=== PATIENT | female | born 1965 | race Hispanic/Latino ===

== ENCOUNTER 2018-05-05 01:41 | Emergency (ER) | payer MEDICARE, MEDICAID ==
[2018-05-05] MEDS ORDERED: Fluconazole 100 MG TAB PO SCH (02:30)
[2018-05-05 03:27] LABS: Bacteria/HPF None Seen HPF (None Seen); Bilirubin Negative (Negative); Blood, Urine Negative (Negative); Clarity CLEAR (Clear); Glucose, Urine (Dipstick) Negative (Negative); Hyaline Casts/LPF 0-3 HYALINE CAST LPF (0-3 Hyaline); Leukocyte Small (Negative); Nitrite Negative (Negative); Pathc Cast-AUWi Flag 0.14 (0-2.49); Protein, Urine (Dipstick) Negative (Neg-Trace); Specific Gravity, Urine 1.012 (1.002-1.036); Squamous Epithelial None Seen HPF (0-3); Urobilinogen 0.2 mg/dL (0.2-1.0); WBC/HPF None Seen HPF (0-3)
== END 2018-05-05 02:42 | disposition home or self-care (01) ==
LOC: ERS 01:41
DX: B37.3 Candidiasis of vulva and vagina (principal); E11.9 Type 2 diabetes mellitus without complications; F17.210 Nicotine dependence, cigarettes, uncomplicated; Z79.899 Other long term (current) drug therapy
CPT/HCPCS: 36416; 81003; 81015; 99284

== ENCOUNTER 2018-05-07 10:26 | Emergency (ER) | payer MEDICARE, MEDICAID ==
[2018-05-07 12:11] LABS: Bilirubin Negative (Negative); Blood, Urine Negative (Negative); Clarity CLEAR (Clear); Glucose, Urine (Dipstick) 100 mg/dL (Negative); Leukocyte Trace (Negative); Nitrite Negative (Negative); Protein, Urine (Dipstick) Negative (Neg-Trace); Specific Gravity, Urine 1.012 (1.002-1.036); Urobilinogen 0.2 mg/dL (0.2-1.0); pH, Urine 5.5 (5.0-9.0)
[2018-05-07 12:12] LABS: Pregnancy Test - Urine (BHCG) Negative (Negative); Pregu Control Background? CLEAR/WHITE (CLR/WHITE); Pregu Control Bar Appear? YES (CONTROL BAR); Specific Gravity 1.012 (1.002-1.036)
[2018-05-07 12:13] LABS: Bacteria/HPF None Seen HPF (None Seen); Hyaline Casts/LPF 0-3 HYALINE CAST LPF (0-3 Hyaline); Pathc Cast-AUWi Flag 0.14 (0-2.49); RBC/HPF 0-3 HPF (0-3); Squamous Epithelial 0-3 HPF (0-3); WBC/HPF 0-3 HPF (0-3)
[2018-05-07] MEDS ORDERED: Azithromycin 250 MG TAB ONE (12:59)
[2018-05-07] MEDS ORDERED: cefTRIAXone\\ROCEPHIN 250 MG VIAL ONE (12:59)
[2018-05-07] MEDS ORDERED: Lidocaine 1% (PF) 30 ML VIAL ONE (12:59)
[2018-05-08 22:14] LABS: Chlamydia by PCR Not Detected (NotDetected); GC by PCR Not Detected (NotDetected)
== END 2018-05-07 13:09 | disposition home or self-care (01) ==
LOC: ERS 10:26
DX: N72 Inflammatory disease of cervix uteri (principal); E11.9 Type 2 diabetes mellitus without complications; E78.5 Hyperlipidemia, unspecified; F31.9 Bipolar disorder, unspecified; F17.210 Nicotine dependence, cigarettes, uncomplicated; Z71.6 Tobacco abuse counseling
CPT/HCPCS: 81003; 81015; 81025; 87480; 87491; 87510; 87591; 87660; 96372; J0696; J2001

== ENCOUNTER 2018-10-07 18:40 | Emergency (ER) | payer MEDICARE, MEDICAID ==
[2018-10-07] MEDS ORDERED: Lidocaine 1% (PF) 30 ML VIAL ONE (19:26)
== END 2018-10-07 20:14 | disposition home or self-care (01) ==
LOC: ERS 18:40
DX: L02.211 Cutaneous abscess of abdominal wall (principal); E11.9 Type 2 diabetes mellitus without complications; E78.5 Hyperlipidemia, unspecified; F31.9 Bipolar disorder, unspecified; F17.210 Nicotine dependence, cigarettes, uncomplicated; Z71.6 Tobacco abuse counseling
CPT/HCPCS: 10061; 99406; J2001

== ENCOUNTER 2019-09-20 09:54 | Emergency (ER) | payer MEDICARE, MEDICAID ==
[2019-09-20 10:57] LABS: #Basophils 0.1 thou/uL (0.0-0.2); #Eosinphils 0.4 thou/uL (0.0-0.7); #Lymphocytes 3.2 thou/uL (1.20-3.40); #Monocytes 0.5 thou/uL (0.11-0.59); #Neutrophils 6.1 thou/uL (1.40-6.50); %Basophils 1.1 % (0.0-1.0); %Eosinophils 3.7 % (0.0-10.0); %Lymphocytes 30.7 % (21.0-51.0); %Monocytes 5.2 % (0.0-10.0); %Neutrophils 59.2 % (42.0-75.0); Hemoglobin 13.2 g/dL (12.0-16.0); Mean Corpuscular HGB CONC 34.8 g/dL (32.0-36.0); Mean Corpuscular Hemoglobin 29.2 pg (27.0-31.0); Mean Corpuscular Volume 83.9 fL (78.0-98.0); Mean Platelet Volume 9.4 fL (7.4-10.4); Platelet Count 228 thou/uL (130-400); RBC Distribution Width 11.8 % (11.5-14.5); Red Blood Cell (RBC) Count 4.53 mill/uL (4.20-5.40); White Blood Cell (WBC) Count 10.3 thou/uL (4.8-10.8)
[2019-09-20 11:13] LABS: Anion Gap 11 mmol/L (10-20); BUN (Urea Nitrogen) 19 mg/dL (9.8-20.1); CK (CPK) 22 U/L (29-168); Calc. Creatinine Clearance 0 mL/min (70-130); Carbon Dioxide 29 mmol/L (22-29); Chloride 99 mmol/L (98-107); Estimated GFR-MDRD 57; Glucose 338 mg/dL (70-105); Sodium 135 mmol/L (136-145)
== END 2019-09-20 11:40 | disposition home or self-care (01) ==
LOC: ERS 09:54
DX: T75.4XXA Electrocution, initial encounter (principal); E11.9 Type 2 diabetes mellitus without complications; F17.210 Nicotine dependence, cigarettes, uncomplicated; W86.8XXA Exposure to other electric current, initial encounter
CPT/HCPCS: 36415; 80048; 82550; 85025; 93005

== ENCOUNTER 2019-11-06 15:31 | Emergency (ER) | payer MEDICARE, MEDICAID ==
[2019-11-06 16:48] LABS: Bilirubin Negative (Negative); Blood, Urine Negative (Negative); Clarity Clear (Clear); Glucose, Urine (Dipstick) Greater than 1000 mg/dL (Negative); Leukocyte Negative Leu/uL (Negative); Nitrite Negative (Negative); Protein, Urine (Dipstick) Negative (Neg-Trace); Urobilinogen Normal mg/dL (Less than 2)
[2019-11-06 18:47] LABS: Base Excess-Venous 3.1 mmol/L (-2.0 to 3.0); Bicarbonate (HCO3v) 29.5 mmol/L (22.0-28.0); Calcium, Ionized 1.18 mmol/L (See Comments:); Chloride 94 mmol/L (98-107); Hemoglobin - Calc 13.9 g/dL (12.0-16.0); Potassium 3.6 mmol/L (3.5-5.1); Sodium 133 mmol/L (138-145)
[2019-11-06 18:47] LABS: #Basophils 0.1 thou/uL (0.0-0.2); #Eosinphils 0.3 thou/uL (0.0-0.7); #Lymphocytes 2.9 thou/uL (1.20-3.40); #Monocytes 0.8 thou/uL (0.11-0.59); #Neutrophils 5.3 thou/uL (1.40-6.50); %Basophils 1.2 % (0.0-1.0); %Eosinophils 3.4 % (0.0-10.0); %Lymphocytes 30.7 % (21.0-51.0); %Monocytes 8.8 % (0.0-10.0); Hemoglobin 13.2 g/dL (12.0-16.0); Mean Corpuscular HGB CONC 36.2 g/dL (32.0-36.0); Mean Corpuscular Hemoglobin 29.9 pg (27.0-31.0); Mean Corpuscular Volume 82.5 fL (78.0-98.0); Mean Platelet Volume 9.3 fL (7.4-10.4); Platelet Count 239 thou/uL (130-400); RBC Distribution Width 11.9 % (11.5-14.5); Red Blood Cell (RBC) Count 4.41 mill/uL (4.20-5.40); White Blood Cell (WBC) Count 9.4 thou/uL (4.8-10.8)
[2019-11-06 19:08] LABS: ALT (SGPT) 21 U/L (8-55); AST (SGOT) 16 U/L (5-34); Albumin 4.6 g/dL (3.5-5.0); Alkaline Phosphatase 167 U/L (40-110); Anion Gap 14 mmol/L (10-20); BUN (Urea Nitrogen) 13 mg/dL (9.8-20.1); Bilirubin, Total 0.4 mg/dL (0.2-1.2); Calc. Creatinine Clearance 0 mL/min (70-130); Carbon Dioxide 29 mmol/L (22-29); Chloride 93 mmol/L (98-107); Estimated GFR-MDRD 47; Globulin 3.6 g/dL (2.4-3.5); Glucose 504 mg/dL (70-105); Lipase 27 U/L (8-78); Potassium 3.8 mmol/L (3.5-5.1); Protein, Total 8.2 g/dL (6.0-8.3); Sodium 132 mmol/L (136-145)
[2019-11-06] MEDS ORDERED: Insulin Regular 300 UNITS/3 ML VIAL ONE (19:31)
== END 2019-11-06 20:38 | disposition home or self-care (01) ==
LOC: ERS 15:31
DX: E11.65 Type 2 diabetes mellitus with hyperglycemia (principal); R32 Unspecified urinary incontinence; E78.5 Hyperlipidemia, unspecified; F31.9 Bipolar disorder, unspecified; F17.210 Nicotine dependence, cigarettes, uncomplicated
CPT/HCPCS: 36416; 80053; 81003; 82010; 82330; 82803; 83690; 85025; 96361; 96374; J1815

== ENCOUNTER 2020-02-07 13:15 | Emergency (ER) | payer MEDICARE, OTHER ==
[2020-02-07] MEDS ORDERED: Nystatin Cream 15 GM TUBE TOP SCH (13:45)
== END 2020-02-07 14:15 | disposition home or self-care (01) ==
LOC: ERS 13:15
DX: B35.6 Tinea cruris (principal); F31.9 Bipolar disorder, unspecified; E78.5 Hyperlipidemia, unspecified; F17.210 Nicotine dependence, cigarettes, uncomplicated; Z79.84 Long term (current) use of oral hypoglycemic drugs
CPT/HCPCS: 99282

== ENCOUNTER 2021-02-12 20:27 | Emergency (ER) | payer MEDICARE, OTHER ==
[2021-02-12 21:53] LABS: Bacteria/HPF None Seen HPF (None Seen); Bilirubin Negative (Negative); Blood, Urine Negative (Negative); Clarity Clear (Clear); Glucose, Urine (Dipstick) Normal (Negative); Ketone, Urine Negative (Negative); Leukocyte 75 Leu/uL (Negative); Mucous/LPF Rare LPF (<2+); Nitrite Negative (Negative); Protein, Urine (Dipstick) Negative (Neg-Trace); RBC/HPF 0-3 HPF (0-3); Renal Epithelial 0-3 HPF (None Seen); Specific Gravity, Urine 1.017 (1.002-1.036); Squamous Epithelial 0-3 HPF (0-3); Urobilinogen Normal mg/dL (Less than 2)
== END 2021-02-12 23:18 | disposition home or self-care (01) ==
LOC: ERS 20:27
DX: N76.0 Acute vaginitis (principal); K02.9 Dental caries, unspecified; L29.9 Pruritus, unspecified; B00.82 Herpes simplex myelitis; E11.9 Type 2 diabetes mellitus without complications; E78.5 Hyperlipidemia, unspecified; F17.210 Nicotine dependence, cigarettes, uncomplicated
CPT/HCPCS: 81003; 81015; 99283

== ENCOUNTER 2021-10-31 12:27 | Observation (INO) | payer MEDICARE, MEDICAID ==
[2021-10-31 13:17] LABS: #Eosinphils 0.1 thou/uL (0.0-0.7); #Lymphocytes 1.3 thou/uL (1.20-3.40); #Monocytes 0.9 thou/uL (0.11-0.59); #Neutrophils 10.6 thou/uL (1.40-6.50); %Basophils 0.3 % (0.0-1.0); %Eosinophils 0.8 % (0.0-10.0); %Lymphocytes 10.1 % (21.0-51.0); %Monocytes 7.1 % (0.0-10.0); %Neutrophils 81.7 % (42.0-75.0); Hemoglobin 9.2 g/dL (12.0-16.0); Mean Corpuscular HGB CONC 33.4 g/dL (32.0-36.0); Mean Corpuscular Hemoglobin 27.8 pg (27.0-31.0); Mean Corpuscular Volume 83.3 fL (78.0-98.0); Mean Platelet Volume 9.5 fL (7.4-10.4); Platelet Count 366 thou/uL (130-400); RBC Distribution Width 14.5 % (11.5-14.5); Red Blood Cell (RBC) Count 3.31 mill/uL (4.20-5.40)
[2021-10-31 13:38] LABS: ALT (SGPT) 19 U/L (8-55); AST (SGOT) 19 U/L (5-34); Albumin 3.7 g/dL (3.5-5.0); Alkaline Phosphatase 198 U/L (40-110); Anion Gap 13 mmol/L (10-20); BUN (Urea Nitrogen) 33 mg/dL (9.8-20.1); Bilirubin, Total 0.3 mg/dL (0.2-1.2); Calc. Creatinine Clearance 0 mL/min (70-130); Calcium 9.2 mg/dL (7.8-10.44); Carbon Dioxide 26 mmol/L (22-29); Chloride 95 mmol/L (98-107); Globulin 3.3 g/dL (2.4-3.5); Potassium 4.9 mmol/L (3.5-5.1); Sodium 129 mmol/L (136-145)
[2021-10-31 13:44] LABS: Glucose 642 mg/dL (70-105)
[2021-10-31 14:23] LABS: Actual Bicarbonate (HCO3v) 23 mEq/L (22-28); Analyzer IN Cardio ER; Calcium, Ionized (venous) 1.07 mmol/L (1.16-1.32); Chloride (VBG) 94 mmol/L (98-106); Potassium (VBG) 4.77 mmol/L (3.70-5.30); pH (venous) 7.36 (7.32-7.43)
[2021-10-31] MEDS ORDERED: Insulin Regular 300 UNITS/3 ML VIAL ONE ×3 (14:34→14:36)
[2021-10-31 14:59] LABS: Bilirubin Negative (Negative); Blood, Urine Negative (Negative); Clarity Clear (Clear); Glucose, Urine (Dipstick) Greater than 1000 mg/dL (Negative); Ketone, Urine Negative (Negative); Leukocyte Negative Leu/uL (Negative); Nitrite Negative (Negative); Protein, Urine (Dipstick) Negative (Neg-Trace); Specific Gravity, Urine 1.024 (1.002-1.036); Urobilinogen Normal mg/dL (Less than 2); pH, Urine 5.5 (5.0-9.0)
[2021-10-31] MEDS ORDERED: Ondansetron ODT 4 MG TAB SL PRN (17:45)
[2021-10-31] MEDS ORDERED: Ondansetron PF 4 MG/2 ML Vial IVP PRN (17:45)
[2021-10-31] MEDS ORDERED: Acetaminophen 325 MG TAB PO PRN (17:45)
[2021-10-31 18:01] LABS: SARS-CoV-2 NAA Rapid Test Not Detected (NotDetected)
[2021-10-31 18:13] VITALS: BMI 20.2
[2021-10-31] MEDS ORDERED: Prevnar 13-Val Conj/PF 0.5 ML SYRINGE IM ONE (18:30)
[2021-10-31] MEDS ORDERED: Insulin Regular 300 UNITS/3 ML VIAL SC PRN (18:45)
[2021-10-31] MEDS ORDERED: Dextrose 5% in Water 1,000 ML IV PRN ×2 (18:45→20:03)
[2021-10-31] MEDS ORDERED: Dextrose 50% Abboject 50 ML SYRINGE SLOW IVP PRN (18:45)
[2021-10-31] MEDS ORDERED: Ondansetron ODT 4 MG TAB PO PRN (20:03)
[2021-10-31] MEDS ORDERED: Acetaminophen 650 MG Suppository PR PRN (20:03)
[2021-10-31] MEDS ORDERED: Piperacillin/Tazobactam 3.375 GM in Sodium Chloride 0.9% 100 ML IVPB SCH ×2 (20:15→21:00)
[2021-10-31] MEDS ORDERED: Vancomycin 1 GM in Premix Bag 1 BAG IVPB SCH (21:00)
[2021-10-31] MEDS: Sodium Chloride 0.9% 1,000 ML IV SCH (21:13)
[2021-10-31] MEDS: Morphine 4 MG/ML VIAL SLOW IVP PRN (23:02)
[2021-10-31 23:14] LABS: Lactic Acid 0.7 mmol/L (0.5-2.2)
[2021-11-01] MEDS: Sodium Chloride 0.9% 1,000 ML IV SCH (03:03)
[2021-11-01 05:30] LABS: #Basophils 0.1 thou/uL (0.0-0.2); #Eosinphils 0.2 thou/uL (0.0-0.7); #Lymphocytes 2.3 thou/uL (1.20-3.40); #Monocytes 0.9 thou/uL (0.11-0.59); #Neutrophils 5.7 thou/uL (1.40-6.50); %Basophils 0.7 % (0.0-1.0); %Eosinophils 2.1 % (0.0-10.0); %Lymphocytes 25.5 % (21.0-51.0); %Monocytes 9.4 % (0.0-10.0); %Neutrophils 62.4 % (42.0-75.0); Hemoglobin 7.8 g/dL (12.0-16.0); Mean Corpuscular HGB CONC 32.8 g/dL (32.0-36.0); Mean Corpuscular Hemoglobin 27.5 pg (27.0-31.0); Mean Corpuscular Volume 83.9 fL (78.0-98.0); Mean Platelet Volume 9.1 fL (7.4-10.4); Platelet Count 342 thou/uL (130-400); RBC Distribution Width 14.2 % (11.5-14.5); Red Blood Cell (RBC) Count 2.84 mill/uL (4.20-5.40); White Blood Cell (WBC) Count 9.2 thou/uL (4.8-10.8)
[2021-11-01 05:41] LABS: Anion Gap 12 mmol/L (10-20); BUN (Urea Nitrogen) 14 mg/dL (9.8-20.1); Calc. Creatinine Clearance 54 mL/min (70-130); Calcium 8.5 mg/dL (7.8-10.44); Carbon Dioxide 24 mmol/L (22-29); Chloride 108 mmol/L (98-107); Glucose 129 mg/dL (70-105); Potassium 4.2 mmol/L (3.5-5.1); Sodium 140 mmol/L (136-145)
[2021-11-01] MEDS: Piperacillin/Tazobactam 3.375 GM in Sodium Chloride 0.9% 100 ML IVPB SCH ×3 (08:27→16:40)
[2021-11-01] MEDS: Enoxaparin Sodium 40 MG/0.4 ML SYRINGE SC SCH (08:27)
[2021-11-01] MEDS: Morphine 4 MG/ML VIAL SLOW IVP PRN (10:54)
[2021-11-01] MEDS: Insulin Regular 300 UNITS/3 ML VIAL SC PRN (17:27)
[2021-11-01] MEDS: Vancomycin HCl 750 MG in Sodium Chloride 0.9% 250 ML 250 ML IVPB SCH (22:26)
[2021-11-02] MEDS: Piperacillin/Tazobactam 3.375 GM in Sodium Chloride 0.9% 100 ML IVPB SCH ×3 (01:27→16:12)
[2021-11-02] MEDS: Morphine 4 MG/ML VIAL SLOW IVP PRN ×4 (01:39→20:53)
[2021-11-02] MEDS: Insulin Regular 300 UNITS/3 ML VIAL SC PRN ×3 (06:29→15:51)
[2021-11-02] MEDS: Enoxaparin Sodium 40 MG/0.4 ML SYRINGE SC SCH (08:16)
[2021-11-02] MEDS: Vancomycin HCl 750 MG in Sodium Chloride 0.9% 250 ML 250 ML IVPB SCH (20:50)
[2021-11-03] MEDS: Piperacillin/Tazobactam 3.375 GM in Sodium Chloride 0.9% 100 ML IVPB SCH ×2 (02:08→08:49)
[2021-11-03 06:10] LABS: #Basophils 0.1 thou/uL (0.0-0.2); #Eosinphils 0.3 thou/uL (0.0-0.7); #Lymphocytes 1.8 thou/uL (1.20-3.40); #Neutrophils 6.5 thou/uL (1.40-6.50); %Basophils 0.8 % (0.0-1.0); %Eosinophils 3.2 % (0.0-10.0); %Lymphocytes 18.5 % (21.0-51.0); %Monocytes 10.1 % (0.0-10.0); %Neutrophils 67.5 % (42.0-75.0); Hemoglobin 8.5 g/dL (12.0-16.0); Mean Corpuscular HGB CONC 33.4 g/dL (32.0-36.0); Mean Corpuscular Hemoglobin 27.6 pg (27.0-31.0); Mean Corpuscular Volume 82.8 fL (78.0-98.0); Mean Platelet Volume 8.2 fL (7.4-10.4); Platelet Count 345 thou/uL (130-400); RBC Distribution Width 13.8 % (11.5-14.5); Red Blood Cell (RBC) Count 3.08 mill/uL (4.20-5.40); White Blood Cell (WBC) Count 9.6 thou/uL (4.8-10.8)
[2021-11-03] MEDS: Insulin Regular 300 UNITS/3 ML VIAL SC PRN ×2 (06:16→12:00)
[2021-11-03 06:33] LABS: Anion Gap 13 mmol/L (10-20); BUN (Urea Nitrogen) 11 mg/dL (9.8-20.1); Calc. Creatinine Clearance 39 mL/min (70-130); Calcium 8.9 mg/dL (7.8-10.44); Carbon Dioxide 24 mmol/L (22-29); Chloride 100 mmol/L (98-107); Glucose 297 mg/dL (70-105); Potassium 4.1 mmol/L (3.5-5.1); Sodium 133 mmol/L (136-145)
[2021-11-03] MEDS: Enoxaparin Sodium 40 MG/0.4 ML SYRINGE SC SCH (07:45)
[2021-11-03 12:13] VITALS: BP 146/75; TEMP 97.6
[2021-11-03] MEDS ORDERED: FLU VACC QS2021-22(6MOS UP)/PF 60 MCG/0.5 ML SYRINGE IM ONE (18:30)
== END 2021-11-03 12:57 | disposition home or self-care (01) ==
LOC: ERS 12:27 → SJJU 16:04
PROVIDERS: ADMIT Family Medicine; ATTEND Internal Medicine
DX: A41.9 Sepsis, unspecified organism (principal); E11.40 Type 2 diabetes mellitus with diabetic neuropathy, unspecified; E11.621 Type 2 diabetes mellitus with foot ulcer; L97.519 Non-pressure chronic ulcer of other part of right foot with unspecified severity; L97.529 Non-pressure chronic ulcer of other part of left foot with unspecified severity; E11.65 Type 2 diabetes mellitus with hyperglycemia; D64.9 Anemia, unspecified; N17.9 Acute kidney failure, unspecified; E87.1 Hypo-osmolality and hyponatremia; E78.5 Hyperlipidemia, unspecified; F17.210 Nicotine dependence, cigarettes, uncomplicated; F14.11 Cocaine abuse, in remission; E11.51 Type 2 diabetes mellitus with diabetic peripheral angiopathy without gangrene; E11.622 Type 2 diabetes mellitus with other skin ulcer; L97.829 Non-pressure chronic ulcer of other part of left lower leg with unspecified severity; F10.11 Alcohol abuse, in remission; Z21 Asymptomatic human immunodeficiency virus [HIV] infection status; Z79.82 Long term (current) use of aspirin; Z79.84 Long term (current) use of oral hypoglycemic drugs; Z79.899 Other long term (current) drug therapy; Z20.822 Contact with and (suspected) exposure to COVID-19
CPT/HCPCS: 0241U; 11000; 71045; 73630 ×2; 80048 ×2; 80053; 80202; 81003; 82010; 82805; 82962 ×4; 83605; 85025 ×3; 87040; 96365; 96366; 96372 ×2; 96375; 96376 ×2; 97139 ×3; 99285; G0378 ×3; 36415; 36416; J1650; J1815; J2270; J2543; J3370; J3490; J7050

== ENCOUNTER 2021-11-24 20:52 | Inpatient (IN) | payer MEDICARE, MEDICAID ==
[2021-11-24 21:46] LABS: ALT (SGPT) 19 U/L (8-55); AST (SGOT) 33 U/L (5-34); Albumin 3.4 g/dL (3.5-5.0); Alkaline Phosphatase 220 U/L (40-110); Anion Gap 24 mmol/L (10-20); BUN (Urea Nitrogen) 49 mg/dL (9.8-20.1); Bilirubin, Total 0.3 mg/dL (0.2-1.2); Calc. Creatinine Clearance 0 mL/min (70-130); Calcium 9.7 mg/dL (7.8-10.44); Carbon Dioxide 21 mmol/L (22-29); Chloride 88 mmol/L (98-107); Globulin 4.1 g/dL (2.4-3.5); Potassium 4.9 mmol/L (3.5-5.1); Protein, Total 7.5 g/dL (6.0-8.3); Sodium 128 mmol/L (136-145)
[2021-11-24 21:50] LABS: Bilirubin Negative (Negative); Blood, Urine Negative (Negative); Clarity Clear (Clear); Glucose, Urine (Dipstick) Greater than 1000 mg/dL (Negative); Ketone, Urine Negative (Negative); Leukocyte Negative Leu/uL (Negative); Nitrite Negative (Negative); Protein, Urine (Dipstick) 20 mg/dL (Neg-Trace); Specific Gravity, Urine 1.022 (1.002-1.036); Urobilinogen Normal mg/dL (Less than 2); pH, Urine 5.5 (5.0-9.0)
[2021-11-24 22:00] LABS: Amphetamine Not Detected (NotDetected); Barbiturates Screen Not Detected (NotDetected); Benzodiazepine Screen Not Detected (NotDetected); Cocaine Metabolite Screen Not Detected (NotDetected); Methadone Not Detected (NotDetected); Methamphetamine Not Detected (NotDetected); Opiate Screen Not Detected (NotDetected); Oxycodone Screen Not Detected (NotDetected); Phencyclidine (PCP) Not Detected (NotDetected); THC/Cannabinoid Screen Not Detected (NotDetected); Tricyclic Screen Not Detected (NotDetected)
[2021-11-24 22:00] LABS: Glucose 1010 mg/dL (70-105)
[2021-11-24 22:08] LABS: Actual Bicarbonate (HCO3v) 17 mEq/L (22-28); Analyzer IN Cardio ER; Calcium, Ionized (venous) 1.02 mmol/L (1.16-1.32); Chloride (VBG) 90 mmol/L (98-106); Hemoglobin (Hb) 9.8 g/dL (11.7-16.0); Potassium (VBG) 4.63 mmol/L (3.70-5.30); Sodium 126.9 mmol/L (133-146); pH (venous) 7.34 (7.32-7.43)
[2021-11-24 22:19] LABS: Band 4 % (5-11); Hemoglobin 8.5 g/dL (12.0-16.0); Lymphocytes 15 % (21-51); MDiff Complete? YES; Mean Corpuscular HGB CONC 30.6 g/dL (32.0-36.0); Mean Corpuscular Hemoglobin 25.3 pg (27.0-31.0); Mean Corpuscular Volume 82.7 fL (78.0-98.0); Mean Platelet Volume 8.6 fL (7.4-10.4); Monocytes 1 % (0-10); Neutrophil 80 % (42-75); Platelet Count 582 thou/uL (130-400); RBC Distribution Width 13.4 % (11.5-14.5); Red Blood Cell (RBC) Count 3.36 mill/uL (4.20-5.40); White Blood Cell (WBC) Count 24.2 thou/uL (4.8-10.8)
[2021-11-24 22:36] LABS: CKMB 59.5 ng/mL (0-6.6)
[2021-11-24] MEDS ORDERED: INSULIN REGULAR IN 0.9 % NACL 100 UNIT/100 ML BAG ONE (23:00)
[2021-11-24] MEDS ORDERED: Insulin Regular 300 UNITS/3 ML VIAL ONE (23:00)
[2021-11-25] MEDS ORDERED: Dextrose 5% in Water 1,000 ML IV PRN ×2 (00:17→05:38)
[2021-11-25] MEDS ORDERED: Ondansetron ODT 4 MG TAB PO PRN (00:17)
[2021-11-25] MEDS ORDERED: Dextrose 50% Abboject 50 ML SYRINGE SLOW IVP PRN ×2 (00:17→05:38)
[2021-11-25] MEDS ORDERED: Ondansetron PF 4 MG/2 ML Vial IVP PRN (00:17)
[2021-11-25] MEDS ORDERED: Acetaminophen 325 MG TAB PO PRN (00:17)
[2021-11-25] MEDS ORDERED: Acetaminophen 650 MG Suppository PR PRN (00:17)
[2021-11-25] MEDS ORDERED: D5 1/2 NS w/20 mEq KCL 1,000 ML IV PRN (00:21)
[2021-11-25] MEDS ORDERED: Sodium Chloride 0.9% 1,000 ML IV PRN ×3 (00:21)
[2021-11-25] MEDS ORDERED: NS 0.9% w/ 20 MEQ KCL 1,000 ML IV PRN ×2 (00:21)
[2021-11-25] MEDS ORDERED: Dextrose 5 %-0.45 % NaCl 1,000 ML IV PRN (00:21)
[2021-11-25] MEDS ORDERED: Electrolyte Replacement Protocol 1 EACH IVPB PRN (00:21)
[2021-11-25] MEDS ORDERED: HUMULIN R 100 UNITS in Sodium Chloride 0.9% 100 ML IVPB SCH (00:30)
[2021-11-25 01:15] LABS: Anion Gap 23 mmol/L (10-20); BUN (Urea Nitrogen) 55 mg/dL (9.8-20.1); Calc. Creatinine Clearance 0 mL/min (70-130); Calcium 8.8 mg/dL (7.8-10.44); Carbon Dioxide 16 mmol/L (22-29); Chloride 98 mmol/L (98-107); Potassium 3.6 mmol/L (3.5-5.1); Sodium 133 mmol/L (136-145)
[2021-11-25 01:16] LABS: Magnesium 1.6 mg/dL (1.6-2.6); Phosphorus 5.3 mg/dL (2.3-4.7)
[2021-11-25 01:26] LABS: Glucose 609 mg/dL (70-105)
[2021-11-25] MEDS ORDERED: Clindamycin/D5W 900 mg/50 ml Premix Bag ONE (01:36)
[2021-11-25] MEDS ORDERED: Aspirin Chewable 81 MG TAB ONE (02:09)
[2021-11-25 02:59] LABS: SARS-CoV-2 NAA Rapid Test Not Detected (NotDetected)
[2021-11-25] MEDS ORDERED: Clindamycin/D5W 600 MG in Premix Bag 1 BAG IVPB SCH ×2 (04:00→10:00)
[2021-11-25] MEDS ORDERED: Magnesium 2 GM/50 ML 2 GM in Premix Bag 1 BAG IVPB SCH (04:15)
[2021-11-25 04:48] LABS: Anion Gap 19 mmol/L (10-20); BUN (Urea Nitrogen) 53 mg/dL (9.8-20.1); Calc. Creatinine Clearance 0 mL/min (70-130); Calcium 8.3 mg/dL (7.8-10.44); Carbon Dioxide 16 mmol/L (22-29); Chloride 106 mmol/L (98-107); Glucose 90 mg/dL (70-105); Potassium 4.4 mmol/L (3.5-5.1); Sodium 137 mmol/L (136-145)
[2021-11-25] MEDS ORDERED: Dextrose 50% Abboject 50 ML SYRINGE ONE (04:49)
[2021-11-25 05:04] LABS: Troponin I 0.705 ng/mL (< 0.028)
[2021-11-25 05:23] LABS: Lactic Acid 3.8 mmol/L (0.5-2.2)
[2021-11-25] MEDS: Cefepime 2 GM in Sodium Chloride 0.9% 100 ML IVPB SCH (05:30)
[2021-11-25 05:38] LABS: Anion Gap 17 mmol/L (10-20); BUN (Urea Nitrogen) 52 mg/dL (9.8-20.1); Calc. Creatinine Clearance 0 mL/min (70-130); Calcium 8.4 mg/dL (7.8-10.44); Carbon Dioxide 21 mmol/L (22-29); Chloride 106 mmol/L (98-107); Potassium 4.5 mmol/L (3.5-5.1); Sodium 139 mmol/L (136-145)
[2021-11-25] MEDS ORDERED: Cefepime 2 GM VIAL ONE (05:39)
[2021-11-25 05:40] LABS: Glucose 57 mg/dL (70-105)
[2021-11-25] MEDS ORDERED: Magnesium 2 GM/50 ML BAG (IN WATER) ONE (06:07)
[2021-11-25] MEDS: Vancomycin HCl 1.25 GM in Sodium Chloride 0.9% 250 ML 250 ML IVPB SCH (06:37)
[2021-11-25] MEDS ORDERED: D5 1/2 NS w/20 mEq KCL 1,000 ML ONE (07:13)
[2021-11-25] MEDS ORDERED: VANCOMYCIN 1.25 GM/250 ML BAG 1.25 GM in Premix Bag 1 BAG IVPB SCH (09:00)
[2021-11-25] MEDS ORDERED: Lantus 1000 UNITS/10 ML VIAL SC SCH (09:00)
[2021-11-25 09:52] LABS: Anion Gap 14 mmol/L (10-20); BUN (Urea Nitrogen) 48 mg/dL (9.8-20.1); Calc. Creatinine Clearance 0 mL/min (70-130); Calcium 8.1 mg/dL (7.8-10.44); Carbon Dioxide 20 mmol/L (22-29); Chloride 106 mmol/L (98-107); Glucose 235 mg/dL (70-105); Sodium 135 mmol/L (136-145)
[2021-11-25] MEDS ORDERED: Enoxaparin Sodium 40 MG/0.4 ML SYRINGE ONE (10:04)
[2021-11-25] MEDS ORDERED: Clindamycin/D5W 600 mg/50 ml Premix Bag ONE (10:10)
[2021-11-25 10:18] LABS: Band 7 % (5-11); Eosinophils 1 % (0-10); Hemoglobin 6.8 g/dL (12.0-16.0); Large Platelets SLIGHT; Lymphocytes 17 % (21-51); MDiff Complete? YES; Mean Corpuscular HGB CONC 32.6 g/dL (32.0-36.0); Mean Corpuscular Hemoglobin 25.1 pg (27.0-31.0); Mean Corpuscular Volume 77.1 fL (78.0-98.0); Monocytes 7 % (0-10); Neutrophil 66 % (42-75); Platelet Count 417 thou/uL (130-400); Platelet Morphology Comment Appears Increased; Polychromasia SLIGHT = 2-3 cells (100X) (0-2/hpf); RBC Distribution Width 13.2 % (11.5-14.5); Reactive Lymphocytes 1 % (0-10); Red Blood Cell (RBC) Count 2.69 mill/uL (4.20-5.40); Target Cells SLIGHT = 2-5 cells (100X) (0-1/hpf); White Blood Cell (WBC) Count 17.6 thou/uL (4.8-10.8)
[2021-11-25] MEDS: Enoxaparin Sodium 40 MG/0.4 ML SYRINGE SC SCH (10:42)
[2021-11-25] MEDS ORDERED: HumaLOG 300 UNITS/3 ML VIAL ONE (14:42)
[2021-11-25] MEDS: HumaLOG 300 UNITS/3 ML VIAL SC PRN (14:46)
[2021-11-25 15:02] LABS: Anion Gap 12 mmol/L (10-20); BUN (Urea Nitrogen) 45 mg/dL (9.8-20.1); Calc. Creatinine Clearance 0 mL/min (70-130); Calcium 8.3 mg/dL (7.8-10.44); Carbon Dioxide 21 mmol/L (22-29); Chloride 105 mmol/L (98-107); Glucose 390 mg/dL (70-105); Sodium 133 mmol/L (136-145)
[2021-11-25] MEDS: Lantus 1000 UNITS/10 ML VIAL SC SCH (21:08)
[2021-11-26] MEDS: Vancomycin HCl 1.25 GM in Sodium Chloride 0.9% 250 ML 250 ML IVPB SCH (07:25)
[2021-11-26] MEDS: Cefepime 2 GM in Sodium Chloride 0.9% 100 ML IVPB SCH ×3 (07:51→16:26)
[2021-11-26 08:52] VITALS: BMI 19.1
[2021-11-26] MEDS ORDERED: FLU VACC QS2021-22(6MOS UP)/PF 60 MCG/0.5 ML SYRINGE IM ONE (09:00)
[2021-11-26] MEDS ORDERED: Prevnar 13-Val Conj/PF 0.5 ML SYRINGE IM ONE (09:00)
[2021-11-26 09:16] LABS: #Basophils 0.1 thou/uL (0.0-0.2); #Eosinphils 0.2 thou/uL (0.0-0.7); #Lymphocytes 2.2 thou/uL (1.20-3.40); #Monocytes 1.1 thou/uL (0.11-0.59); #Neutrophils 12.5 thou/uL (1.40-6.50); %Basophils 0.5 % (0.0-1.0); %Eosinophils 1.3 % (0.0-10.0); %Lymphocytes 13.7 % (21.0-51.0); %Monocytes 6.8 % (0.0-10.0); %Neutrophils 77.7 % (42.0-75.0); Hemoglobin 9.2 g/dL (12.0-16.0); Mean Corpuscular HGB CONC 31.8 g/dL (32.0-36.0); Mean Corpuscular Hemoglobin 25.6 pg (27.0-31.0); Mean Corpuscular Volume 80.7 fL (78.0-98.0); Mean Platelet Volume 7.7 fL (7.4-10.4); Platelet Count 463 thou/uL (130-400); RBC Distribution Width 14.3 % (11.5-14.5); Red Blood Cell (RBC) Count 3.57 mill/uL (4.20-5.40); White Blood Cell (WBC) Count 16.1 thou/uL (4.8-10.8)
[2021-11-26 09:28] LABS: Anion Gap 13 mmol/L (10-20); BUN (Urea Nitrogen) 21 mg/dL (9.8-20.1); Calc. Creatinine Clearance 63 mL/min (70-130); Calcium 8.6 mg/dL (7.8-10.44); Carbon Dioxide 21 mmol/L (22-29); Chloride 106 mmol/L (98-107); Glucose 185 mg/dL (70-105); Potassium 4.5 mmol/L (3.5-5.1); Sodium 135 mmol/L (136-145)
[2021-11-26] MEDS: Enoxaparin Sodium 40 MG/0.4 ML SYRINGE SC SCH (09:52)
[2021-11-26] MEDS: Lantus 1000 UNITS/10 ML VIAL SC SCH ×2 (09:53→21:02)
[2021-11-26] MEDS ORDERED: Iopamidol 370 76% 100 ML VIAL ONE (11:42)
[2021-11-26] MEDS: Lactated Ringer's 1,000 ML IV SCH (15:26)
[2021-11-26] MEDS: HumaLOG 300 UNITS/3 ML VIAL SC PRN (17:26)
[2021-11-26] MEDS: metroNIDAZOLE 500 MG TAB PO SCH (21:02)
[2021-11-27] MEDS: Cefepime 2 GM in Sodium Chloride 0.9% 100 ML IVPB SCH ×2 (05:22→16:13)
[2021-11-27 07:39] LABS: #Eosinphils 0.4 thou/uL (0.0-0.7); #Lymphocytes 2.4 thou/uL (1.20-3.40); #Monocytes 1.4 thou/uL (0.11-0.59); #Neutrophils 10.3 thou/uL (1.40-6.50); %Basophils 0.3 % (0.0-1.0); %Eosinophils 2.8 % (0.0-10.0); %Lymphocytes 16.7 % (21.0-51.0); %Monocytes 9.3 % (0.0-10.0); %Neutrophils 70.9 % (42.0-75.0); Hemoglobin 9.5 g/dL (12.0-16.0); Mean Corpuscular HGB CONC 31.8 g/dL (32.0-36.0); Mean Corpuscular Volume 81.6 fL (78.0-98.0); Mean Platelet Volume 7.4 fL (7.4-10.4); Platelet Count 443 thou/uL (130-400); RBC Distribution Width 14.1 % (11.5-14.5); Red Blood Cell (RBC) Count 3.66 mill/uL (4.20-5.40); White Blood Cell (WBC) Count 14.5 thou/uL (4.8-10.8)
[2021-11-27 07:40] LABS: Anion Gap 14 mmol/L (10-20); BUN (Urea Nitrogen) 11 mg/dL (9.8-20.1); CRP (Inflammatory) 5.51 mg/dL (= or < 0.5); Calc. Creatinine Clearance 69 mL/min (70-130); Carbon Dioxide 24 mmol/L (22-29); Chloride 105 mmol/L (98-107); Glucose 73 mg/dL (70-105); Potassium 4.2 mmol/L (3.5-5.1); Sodium 139 mmol/L (136-145)
[2021-11-27] MEDS: metroNIDAZOLE 500 MG TAB PO SCH ×3 (08:46→21:03)
[2021-11-27] MEDS: Lantus 1000 UNITS/10 ML VIAL SC SCH ×2 (08:47→21:02)
[2021-11-27] MEDS: Enoxaparin Sodium 40 MG/0.4 ML SYRINGE SC SCH (08:47)
[2021-11-27] MEDS ORDERED: Iopamidol 370 76% 50 ML VIAL FS ONE (11:06)
[2021-11-27] MEDS ORDERED: Heparin 10,000 UNITS/ 10 ML VIAL ONE (11:42)
[2021-11-27] MEDS ORDERED: Fentanyl 100 MCG/2 ML VIAL ONE ×3 (11:42→14:19)
[2021-11-27] MEDS ORDERED: Clopidogrel Bisulfate 300 MG TAB ONE (12:18)
[2021-11-27] MEDS ORDERED: Protamine Sulfate 50 MG/5 ML VIAL ONE (12:34)
[2021-11-27] MEDS: Lactated Ringer's 1,000 ML IV SCH (12:52)
[2021-11-27] MEDS ORDERED: Lidocaine 1% PF 5 ML VIAL ONE (13:19)
[2021-11-27] MEDS ORDERED: PROPOFOL 200 MG/20 ML VIAL ONE (13:19)
[2021-11-27] MEDS ORDERED: PHENYLEPHRINE-NS 100 MCG/ML 10 ML SYRINGE ONE (13:19)
[2021-11-27] MEDS ORDERED: Ondansetron PF 4 MG/2 ML Vial ONE (13:19)
[2021-11-27] MEDS ORDERED: Dextrose 50% Abboject 50 ML SYRINGE ONE (14:14)
[2021-11-27] MEDS ORDERED: Ondansetron HCl/PF 4 MG/2 ML Vial IVP PRN (14:15)
[2021-11-27] MEDS ORDERED: Promethazine HCl 25 MG/ML VIAL IM PRN (14:15)
[2021-11-27] MEDS ORDERED: Promethazine HCl 25 MG/ML VIAL IVPB PRN (14:15)
[2021-11-27] MEDS ORDERED: Dextrose 50% Abboject 50 ML SYRINGE SLOW IVP PRN (14:16)
[2021-11-27] MEDS ORDERED: diphenhydrAMINE 50 MG/ML VIAL ONE (14:50)
[2021-11-27] MEDS: traMADol HCl 50 MG TAB PO PRN (17:56)
[2021-11-27] MEDS: HumaLOG 300 UNITS/3 ML VIAL SC PRN (21:03)
[2021-11-28 05:21] LABS: #Eosinphils 0.3 thou/uL (0.0-0.7); #Lymphocytes 2.1 thou/uL (1.20-3.40); #Monocytes 1.2 thou/uL (0.11-0.59); #Neutrophils 10.9 thou/uL (1.40-6.50); %Basophils 0.3 % (0.0-1.0); %Eosinophils 1.9 % (0.0-10.0); %Lymphocytes 14.1 % (21.0-51.0); %Monocytes 8.5 % (0.0-10.0); %Neutrophils 75.1 % (42.0-75.0); Mean Corpuscular HGB CONC 31.9 g/dL (32.0-36.0); Mean Corpuscular Hemoglobin 26.2 pg (27.0-31.0); Mean Corpuscular Volume 82.1 fL (78.0-98.0); Mean Platelet Volume 7.5 fL (7.4-10.4); Platelet Count 414 thou/uL (130-400); RBC Distribution Width 14.7 % (11.5-14.5); Red Blood Cell (RBC) Count 3.44 mill/uL (4.20-5.40); White Blood Cell (WBC) Count 14.5 thou/uL (4.8-10.8)
[2021-11-28] MEDS: Lactated Ringer's 1,000 ML IV SCH ×2 (05:21→23:56)
[2021-11-28 05:27] LABS: Hemoglobin A1c 10.1 % (4.0-6.0)
[2021-11-28 05:48] LABS: Anion Gap 12 mmol/L (10-20); BUN (Urea Nitrogen) 15 mg/dL (9.8-20.1); CRP (Inflammatory) 4.56 mg/dL (= or < 0.5); Calc. Creatinine Clearance 58 mL/min (70-130); Calcium 8.5 mg/dL (7.8-10.44); Carbon Dioxide 26 mmol/L (22-29); Cardiac Risk 3.5 (Less than 4.5); Chloride 102 mmol/L (98-107); Cholesterol 108 mg/dl (< 200 Desired); Glucose 207 mg/dL (70-105); HDL Cholesterol 31 mg/dL (>60 Neg Risk); LDL Cholesterol, Calculated 65 mg/dL; Potassium 4.6 mmol/L (3.5-5.1); Sodium 135 mmol/L (136-145); Triglycerides 59 mg/dL (Less than 150)
[2021-11-28] MEDS: Cefepime 2 GM in Sodium Chloride 0.9% 100 ML IVPB SCH ×2 (06:32→16:17)
[2021-11-28] MEDS: Clopidogrel Bisulfate 75 MG TAB PO SCH (08:28)
[2021-11-28] MEDS: Lantus 1000 UNITS/10 ML VIAL SC SCH ×2 (08:28→21:58)
[2021-11-28] MEDS: Aspirin 81 mg Enteric Coated Tablet PO SCH (08:28)
[2021-11-28] MEDS: metroNIDAZOLE 500 MG TAB PO SCH ×3 (08:28→20:08)
[2021-11-28] MEDS: Enoxaparin Sodium 40 MG/0.4 ML SYRINGE SC SCH (08:29)
[2021-11-28] MEDS: traMADol HCl 50 MG TAB PO PRN (08:39)
[2021-11-28] MEDS: Morphine 4 MG/ML VIAL SLOW IVP PRN (11:43)
[2021-11-28] MEDS: HumaLOG 300 UNITS/3 ML VIAL SC PRN ×2 (12:16→20:08)
[2021-11-28 15:17] LABS: %CD4 (Helper/Inducer) 50.8 % (30.8-58.5); Absolute CD4 1016 /uL (359-1519); Total Lymphocyte 14 % (Not Estab.); WBC Total Count 14.5 x10E3/uL (3.4-10.8)
[2021-11-29] MEDS: Cefepime 2 GM in Sodium Chloride 0.9% 100 ML IVPB SCH (05:05)
[2021-11-29 06:16] LABS: #Basophils 0.1 thou/uL (0.0-0.2); #Eosinphils 0.4 thou/uL (0.0-0.7); #Monocytes 1.1 thou/uL (0.11-0.59); #Neutrophils 7.6 thou/uL (1.40-6.50); %Basophils 0.5 % (0.0-1.0); %Eosinophils 3.9 % (0.0-10.0); %Lymphocytes 18.2 % (21.0-51.0); %Monocytes 9.4 % (0.0-10.0); Hemoglobin 8.9 g/dL (12.0-16.0); Mean Corpuscular HGB CONC 31.7 g/dL (32.0-36.0); Mean Corpuscular Hemoglobin 26.1 pg (27.0-31.0); Mean Corpuscular Volume 82.3 fL (78.0-98.0); Mean Platelet Volume 7.5 fL (7.4-10.4); Platelet Count 419 thou/uL (130-400); RBC Distribution Width 15.1 % (11.5-14.5); Red Blood Cell (RBC) Count 3.39 mill/uL (4.20-5.40); White Blood Cell (WBC) Count 11.2 thou/uL (4.8-10.8)
[2021-11-29 06:34] LABS: Anion Gap 15 mmol/L (10-20); BUN (Urea Nitrogen) 14 mg/dL (9.8-20.1); Calc. Creatinine Clearance 65 mL/min (70-130); Carbon Dioxide 26 mmol/L (22-29); Chloride 101 mmol/L (98-107); Glucose 101 mg/dL (70-105); Potassium 4.6 mmol/L (3.5-5.1); Sodium 137 mmol/L (136-145)
[2021-11-29] MEDS: metroNIDAZOLE 500 MG TAB PO SCH ×3 (08:14→20:48)
[2021-11-29] MEDS: Aspirin 81 mg Enteric Coated Tablet PO SCH (08:14)
[2021-11-29] MEDS: Clopidogrel Bisulfate 75 MG TAB PO SCH (08:14)
[2021-11-29] MEDS: Enoxaparin Sodium 40 MG/0.4 ML SYRINGE SC SCH (08:14)
[2021-11-29] MEDS: Lantus 1000 UNITS/10 ML VIAL SC SCH ×2 (08:15→20:48)
[2021-11-29] MEDS: HumaLOG 300 UNITS/3 ML VIAL SC PRN ×2 (11:54→20:53)
[2021-11-29] MEDS: traMADol HCl 50 MG TAB PO PRN (16:47)
[2021-11-29] MEDS: Ciprofloxacin 500 MG TAB PO SCH (20:48)
[2021-11-29 21:36] LABS: HIV-1 Quantitative, RNA PCR <20 copies/mL (.)
[2021-11-30] MEDS: Ciprofloxacin 500 MG TAB PO SCH (05:13)
[2021-11-30 05:15] VITALS: TEMP 98.1
[2021-11-30] MEDS: metroNIDAZOLE 500 MG TAB PO SCH ×2 (08:18→14:36)
[2021-11-30] MEDS: Aspirin 81 mg Enteric Coated Tablet PO SCH (08:18)
[2021-11-30] MEDS: Enoxaparin Sodium 40 MG/0.4 ML SYRINGE SC SCH (08:19)
[2021-11-30] MEDS: Clopidogrel Bisulfate 75 MG TAB PO SCH (08:19)
[2021-11-30] MEDS: traMADol HCl 50 MG TAB PO PRN (08:19)
[2021-11-30] MEDS: Lantus 1000 UNITS/10 ML VIAL SC SCH (08:19)
[2021-11-30 08:46] VITALS: BP 163/86
[2021-11-30 09:28] LABS: Anion Gap 12 mmol/L (10-20); BUN (Urea Nitrogen) 21 mg/dL (9.8-20.1); Calc. Creatinine Clearance 63 mL/min (70-130); Calcium 9.2 mg/dL (7.8-10.44); Carbon Dioxide 27 mmol/L (22-29); Chloride 100 mmol/L (98-107); Glucose 147 mg/dL (70-105); Potassium 4.2 mmol/L (3.5-5.1); Sodium 135 mmol/L (136-145)
[2021-11-30] MEDS: Morphine 4 MG/ML VIAL SLOW IVP PRN (15:16)
== END 2021-11-30 18:50 | disposition home or self-care (01) | DRG 616 ==
LOC: ERS 20:52 → ERHOLD 11-25 → T4-B 11-25 18:20
PROVIDERS: ADMIT Student in an Organized Health Care Education/Training Program; ATTEND Hospitalist
PROC: 30233N1 Transfusion of Nonautologous Red Blood Cells into Peripheral Vein, Percutaneous Approach (ICD-10-PCS; 2021-11-26)
PROC: 0Y6N0Z9 Detachment at Left Foot, Partial 1st Ray, Open Approach (ICD-10-PCS; principal; 2021-11-27)
PROC: 0Y6N0ZB Detachment at Left Foot, Partial 2nd Ray, Open Approach (ICD-10-PCS; 2021-11-27)
PROC: 047L34Z Dilation of Left Femoral Artery with Drug-eluting Intraluminal Device, Percutaneous Approach (ICD-10-PCS; 2021-11-27)
PROC: B40D1ZZ Plain Radiography of Aorta and Bilateral Lower Extremity Arteries using Low Osmolar Contrast (ICD-10-PCS; 2021-11-27)
DX: E11.00 Type 2 diabetes mellitus with hyperosmolarity without nonketotic hyperglycemic-hyperosmolar coma (NKHHC) (principal); G93.41 Metabolic encephalopathy; M86.8X7 Other osteomyelitis, ankle and foot; L03.116 Cellulitis of left lower limb; E11.52 Type 2 diabetes mellitus with diabetic peripheral angiopathy with gangrene; I96 Gangrene, not elsewhere classified; N17.9 Acute kidney failure, unspecified; E11.69 Type 2 diabetes mellitus with other specified complication; Z20.822 Contact with and (suspected) exposure to COVID-19; Z21 Asymptomatic human immunodeficiency virus [HIV] infection status; B96.4 Proteus (mirabilis) (morganii) as the cause of diseases classified elsewhere; E11.621 Type 2 diabetes mellitus with foot ulcer; L97.529 Non-pressure chronic ulcer of other part of left foot with unspecified severity; L97.519 Non-pressure chronic ulcer of other part of right foot with unspecified severity; F41.9 Anxiety disorder, unspecified; F17.210 Nicotine dependence, cigarettes, uncomplicated; D64.9 Anemia, unspecified; E11.42 Type 2 diabetes mellitus with diabetic polyneuropathy; E78.5 Hyperlipidemia, unspecified; R45.1 Restlessness and agitation; Z79.82 Long term (current) use of aspirin; Z79.899 Other long term (current) drug therapy; Z79.84 Long term (current) use of oral hypoglycemic drugs; Z71.6 Tobacco abuse counseling
CPT/HCPCS: 36247; 36415; 36416; 36430; 37224; 37226; 70450; 71045; 72125; 75630; 75635; 75710; 75736; 80048; 80053; 80061; 80306; 81003; 82010; 82550; 82553; 82805; 83036; 83605; 83735; 83930; 84100; 84484; 85025; 85048; 85347; 86140; 86361; 86850; 86900; 86901; 87040; 87070; 87077; 87086; 87149; 87186; 87205; 87536; 88305; 88311; 93005; C1874; C1889; J0692; J1200; J1644; J1650; J1815; J2270; J2405; J2704; J2720; J3010; J3370; J3475; J3480; J3490; J7042; J7050; J7120; P9016; Q9967; U0002

== ENCOUNTER 2021-12-05 12:55 | Inpatient (IN) | payer MEDICARE, MEDICAID ==
[2021-12-05 13:32] LABS: #Basophils 0.1 thou/uL (0.0-0.2); #Eosinphils 0.1 thou/uL (0.0-0.7); #Lymphocytes 1.4 thou/uL (1.20-3.40); #Monocytes 0.5 thou/uL (0.11-0.59); #Neutrophils 6.4 thou/uL (1.40-6.50); %Basophils 0.7 % (0.0-1.0); %Lymphocytes 16.8 % (21.0-51.0); %Monocytes 6.1 % (0.0-10.0); %Neutrophils 75.5 % (42.0-75.0); Hemoglobin 6.1 g/dL (12.0-16.0); Mean Corpuscular HGB CONC 33.5 g/dL (32.0-36.0); Mean Corpuscular Hemoglobin 27.5 pg (27.0-31.0); Mean Corpuscular Volume 82.1 fL (78.0-98.0); Mean Platelet Volume 7.8 fL (7.4-10.4); Platelet Count 415 thou/uL (130-400); RBC Distribution Width 17.4 % (11.5-14.5); White Blood Cell (WBC) Count 8.5 thou/uL (4.8-10.8)
[2021-12-05 13:55] LABS: ALT (SGPT) 15 U/L (8-55); AST (SGOT) 16 U/L (5-34); Albumin 3.2 g/dL (3.5-5.0); Alkaline Phosphatase 92 U/L (40-110); Anion Gap 14 mmol/L (10-20); BUN (Urea Nitrogen) 19 mg/dL (9.8-20.1); Bilirubin, Total 0.2 mg/dL (0.2-1.2); Calc. Creatinine Clearance 0 mL/min (70-130); Calcium 8.3 mg/dL (7.8-10.44); Carbon Dioxide 24 mmol/L (22-29); Chloride 94 mmol/L (98-107); Glucose 485 mg/dL (70-105); Potassium 4.2 mmol/L (3.5-5.1); Protein, Total 6.2 g/dL (6.0-8.3); Sodium 128 mmol/L (136-145)
[2021-12-05 16:05] LABS: Bacteria/HPF 1+ HPF (None Seen); Bilirubin Negative (Negative); Blood, Urine 1+ (Negative); Clarity Clear (Clear); Glucose, Urine (Dipstick) Greater than 1000 mg/dL (Negative); Ketone, Urine Negative (Negative); Leukocyte 500 Leu/uL (Negative); Nitrite Negative (Negative); Protein, Urine (Dipstick) Negative (Neg-Trace); Specific Gravity, Urine 1.024 (1.002-1.036); Urobilinogen Normal mg/dL (Less than 2); pH, Urine 5.5 (5.0-9.0)
[2021-12-05] MEDS ORDERED: Bisacodyl 10 MG SUPP PR PRN (16:40)
[2021-12-05] MEDS ORDERED: Senokot S 8.6-50 MG TAB PO PRN (16:40)
[2021-12-05] MEDS ORDERED: Guaifenesin DM 100-10/5 ML UDCUP PO PRN (16:40)
[2021-12-05] MEDS ORDERED: Dextrose 50% Abboject 50 ML SYRINGE SLOW IVP PRN (16:40)
[2021-12-05] MEDS ORDERED: HumaLOG 300 UNITS/3 ML VIAL SC PRN (16:40)
[2021-12-05] MEDS ORDERED: Calcium Carbonate 500 MG ChewTAB PO PRN (16:40)
[2021-12-05] MEDS ORDERED: Dextrose 5% in Water 1,000 ML IV PRN (16:40)
[2021-12-05] MEDS: metroNIDAZOLE 500 MG TAB PO SCH (20:25)
[2021-12-05] MEDS: Atorvastatin Calcium 40 MG TAB PO SCH (20:25)
[2021-12-05] MEDS: metFORMIN 500 MG TAB PO SCH (20:25)
[2021-12-05] MEDS: Famotidine 20 MG TAB PO SCH (20:25)
[2021-12-05] MEDS: Ciprofloxacin 500 MG TAB PO SCH (20:25)
[2021-12-05] MEDS: Metoprolol Tartrate 50 MG TAB PO SCH (20:25)
[2021-12-06] MEDS: Acetaminophen 325 MG TAB PO PRN ×3 (02:37→22:08)
[2021-12-06] MEDS: HumaLOG 300 UNITS/3 ML VIAL SC PRN (06:42)
[2021-12-06 06:59] LABS: Hemoglobin 7.6 g/dL (12.0-16.0); Mean Corpuscular HGB CONC 32.6 g/dL (32.0-36.0); Mean Corpuscular Hemoglobin 28.9 pg (27.0-31.0); Mean Corpuscular Volume 88.5 fL (78.0-98.0); Mean Platelet Volume 7.8 fL (7.4-10.4); Platelet Count 407 thou/uL (130-400); RBC Distribution Width 17.5 % (11.5-14.5); Red Blood Cell (RBC) Count 2.64 mill/uL (4.20-5.40); White Blood Cell (WBC) Count 10.9 thou/uL (4.8-10.8)
[2021-12-06 07:04] LABS: Anion Gap 11 mmol/L (10-20); BUN (Urea Nitrogen) 15 mg/dL (9.8-20.1); Calc. Creatinine Clearance 59 mL/min (70-130); Calcium 8.3 mg/dL (7.8-10.44); Carbon Dioxide 27 mmol/L (22-29); Chloride 97 mmol/L (98-107); Glucose 235 mg/dL (70-105); Potassium 3.7 mmol/L (3.5-5.1); Sodium 131 mmol/L (136-145)
[2021-12-06 08:25] LABS: SARS-CoV-2 NAA Rapid Test DETECTED (NotDetected)
[2021-12-06 08:39] LABS: Band 17 % (5-11); Lymphocytes 25 % (21-51); MDiff Complete? YES; Monocytes 4 % (0-10); Myelocyte 2 % (0-0); Neutrophil 52 % (42-75); Nucleated RBC 1 % (0); Platelet Morphology Comment Appears Increased; Polychromasia MODERATE = 3-4 cells (100X) (0-2/hpf)
[2021-12-06] MEDS: Enoxaparin Sodium 40 MG/0.4 ML SYRINGE SC SCH (10:20)
[2021-12-06] MEDS: Aspirin 81 mg Enteric Coated Tablet PO SCH (10:21)
[2021-12-06] MEDS: Famotidine 20 MG TAB PO SCH ×2 (10:21→19:44)
[2021-12-06] MEDS: Ciprofloxacin 500 MG TAB PO SCH ×2 (10:21→19:43)
[2021-12-06] MEDS: metFORMIN 500 MG TAB PO SCH ×2 (10:21→19:43)
[2021-12-06] MEDS: Lantus 1000 UNITS/10 ML VIAL SC SCH ×2 (10:21→19:45)
[2021-12-06] MEDS: Clopidogrel Bisulfate 75 MG TAB PO SCH (10:21)
[2021-12-06] MEDS: Metoprolol Tartrate 50 MG TAB PO SCH ×2 (10:21→19:43)
[2021-12-06] MEDS: Lisinopril 10 MG TAB PO SCH (10:21)
[2021-12-06] MEDS: metroNIDAZOLE 500 MG TAB PO SCH ×3 (10:22→19:44)
[2021-12-06] MEDS: Atorvastatin Calcium 40 MG TAB PO SCH (19:43)
[2021-12-06] MEDS: Lactated Ringer's 1,000 ML IV SCH (19:44)
[2021-12-06 22:50] VITALS: BMI 21.8
[2021-12-07] MEDS: Ciprofloxacin 500 MG TAB PO SCH ×2 (06:03→21:47)
[2021-12-07] MEDS ORDERED: Heparin 10,000 UNITS/ 10 ML VIAL ONE (06:12)
[2021-12-07 06:54] LABS: #Eosinphils 0.1 thou/uL (0.0-0.7); #Lymphocytes 1.9 thou/uL (1.20-3.40); #Monocytes 0.7 thou/uL (0.11-0.59); #Neutrophils 5.5 thou/uL (1.40-6.50); %Eosinophils 1.2 % (0.0-10.0); %Lymphocytes 22.9 % (21.0-51.0); %Monocytes 8.4 % (0.0-10.0); %Neutrophils 67.4 % (42.0-75.0); Hemoglobin 7.8 g/dL (12.0-16.0); Mean Corpuscular Hemoglobin 28.1 pg (27.0-31.0); Mean Corpuscular Volume 87.8 fL (78.0-98.0); Mean Platelet Volume 7.6 fL (7.4-10.4); Platelet Count 413 thou/uL (130-400); RBC Distribution Width 17.4 % (11.5-14.5); Red Blood Cell (RBC) Count 2.76 mill/uL (4.20-5.40); White Blood Cell (WBC) Count 8.2 thou/uL (4.8-10.8)
[2021-12-07 07:06] LABS: Anion Gap 10 mmol/L (10-20); BUN (Urea Nitrogen) 10 mg/dL (9.8-20.1); Calc. Creatinine Clearance 62 mL/min (70-130); Calcium 8.4 mg/dL (7.8-10.44); Carbon Dioxide 28 mmol/L (22-29); Chloride 104 mmol/L (98-107); Glucose 121 mg/dL (70-105); Potassium 3.7 mmol/L (3.5-5.1); Sodium 138 mmol/L (136-145)
[2021-12-07] MEDS ORDERED: Fentanyl 100 MCG/2 ML VIAL ONE ×2 (07:07→19:33)
[2021-12-07] MEDS ORDERED: Protamine Sulfate 50 MG/5 ML VIAL ONE (07:33)
[2021-12-07] MEDS: Aspirin 81 mg Enteric Coated Tablet PO SCH (08:51)
[2021-12-07] MEDS: Lisinopril 10 MG TAB PO SCH ×3 (08:51→11:46)
[2021-12-07] MEDS: Clopidogrel Bisulfate 75 MG TAB PO SCH (08:51)
[2021-12-07] MEDS: Enoxaparin Sodium 40 MG/0.4 ML SYRINGE SC SCH (08:51)
[2021-12-07] MEDS: Ferrous Sulfate 325 MG TAB PO SCH ×3 (08:51→18:09)
[2021-12-07] MEDS: Famotidine 20 MG TAB PO SCH ×3 (08:51→21:47)
[2021-12-07] MEDS: metFORMIN 500 MG TAB PO SCH ×2 (08:51→21:47)
[2021-12-07] MEDS: Lantus 1000 UNITS/10 ML VIAL SC SCH ×2 (08:52→21:48)
[2021-12-07] MEDS: Metoprolol Tartrate 50 MG TAB PO SCH ×4 (08:52→21:48)
[2021-12-07] MEDS: metroNIDAZOLE 500 MG TAB PO SCH ×4 (08:52→21:48)
[2021-12-07] MEDS ORDERED: Iopamidol 370 76% 50 ML VIAL FS ONE (08:55)
[2021-12-07] MEDS: Lactated Ringer's 1,000 ML IV SCH (18:08)
[2021-12-07] MEDS ORDERED: Ondansetron PF 4 MG/2 ML Vial ONE (19:48)
[2021-12-07] MEDS ORDERED: PROPOFOL 200 MG/20 ML VIAL ONE (19:48)
[2021-12-07] MEDS ORDERED: Lidocaine 1% PF 5 ML VIAL ONE (19:48)
[2021-12-07] MEDS ORDERED: PHENYLEPHRINE-NS 100 MCG/ML 10 ML SYRINGE ONE (19:48)
[2021-12-07] MEDS ORDERED: Promethazine HCl 25 MG/ML VIAL IVPB PRN (20:44)
[2021-12-07] MEDS ORDERED: Promethazine HCl 25 MG/ML VIAL IM PRN (20:44)
[2021-12-07] MEDS ORDERED: Ondansetron HCl/PF 4 MG/2 ML Vial IVP PRN (20:44)
[2021-12-07] MEDS: Acetaminophen 325 MG TAB PO PRN (21:44)
[2021-12-07] MEDS: Atorvastatin Calcium 40 MG TAB PO SCH (21:47)
[2021-12-08] MEDS: traMADol HCl 50 MG TAB PO PRN ×2 (01:32→09:00)
[2021-12-08] MEDS: Acetaminophen 325 MG TAB PO PRN ×3 (04:43→12:55)
[2021-12-08] MEDS: Ciprofloxacin 500 MG TAB PO SCH ×2 (04:43→20:39)
[2021-12-08 05:52] LABS: Hemoglobin 6.9 g/dL (12.0-16.0); Platelet Count 343 thou/uL (130-400)
[2021-12-08] MEDS: HumaLOG 300 UNITS/3 ML VIAL SC PRN (06:27)
[2021-12-08] MEDS: Lisinopril 10 MG TAB PO SCH (08:37)
[2021-12-08] MEDS: metFORMIN 500 MG TAB PO SCH ×2 (08:37→08:51)
[2021-12-08] MEDS: metroNIDAZOLE 500 MG TAB PO SCH ×3 (08:37→20:39)
[2021-12-08] MEDS: Metoprolol Tartrate 50 MG TAB PO SCH ×2 (08:37→20:39)
[2021-12-08] MEDS: Famotidine 20 MG TAB PO SCH ×2 (08:38→20:39)
[2021-12-08] MEDS: Clopidogrel Bisulfate 75 MG TAB PO SCH (08:38)
[2021-12-08] MEDS: Enoxaparin Sodium 40 MG/0.4 ML SYRINGE SC SCH (08:38)
[2021-12-08] MEDS: Aspirin 81 mg Enteric Coated Tablet PO SCH (08:38)
[2021-12-08] MEDS: Lantus 1000 UNITS/10 ML VIAL SC SCH ×2 (08:49→20:49)
[2021-12-08] MEDS: Lactated Ringer's 1,000 ML IV SCH (09:00)
[2021-12-08] MEDS: Ferrous Sulfate 325 MG TAB PO SCH ×2 (09:00→17:46)
[2021-12-08] MEDS: Ondansetron PF 4 MG/2 ML Vial IVP PRN (11:00)
[2021-12-08] MEDS: buPROPion 75 MG TAB PO SCH (20:39)
[2021-12-08] MEDS: Atorvastatin Calcium 40 MG TAB PO SCH (20:39)
[2021-12-09] MEDS: Acetaminophen 325 MG TAB PO PRN ×2 (02:11→21:17)
[2021-12-09] MEDS: traMADol HCl 50 MG TAB PO PRN ×2 (02:11→21:18)
[2021-12-09] MEDS: Ciprofloxacin 500 MG TAB PO SCH ×2 (05:37→21:17)
[2021-12-09] MEDS: HumaLOG 300 UNITS/3 ML VIAL SC PRN (05:40)
[2021-12-09] MEDS: Lactated Ringer's 1,000 ML IV SCH (05:46)
[2021-12-09] MEDS: Lantus 1000 UNITS/10 ML VIAL SC SCH ×2 (08:38→21:40)
[2021-12-09] MEDS: buPROPion 75 MG TAB PO SCH ×2 (08:40→21:16)
[2021-12-09] MEDS: Lisinopril 10 MG TAB PO SCH (08:40)
[2021-12-09] MEDS: Aspirin 81 mg Enteric Coated Tablet PO SCH (08:40)
[2021-12-09] MEDS: Ferrous Sulfate 325 MG TAB PO SCH ×2 (08:41→17:01)
[2021-12-09] MEDS: metFORMIN 500 MG TAB PO SCH ×2 (08:41→17:00)
[2021-12-09] MEDS: Metoprolol Tartrate 50 MG TAB PO SCH ×2 (08:42→21:17)
[2021-12-09] MEDS: Famotidine 20 MG TAB PO SCH ×2 (08:42→21:17)
[2021-12-09] MEDS: Clopidogrel Bisulfate 75 MG TAB PO SCH (08:42)
[2021-12-09] MEDS: metroNIDAZOLE 500 MG TAB PO SCH ×3 (08:42→21:16)
[2021-12-09] MEDS: Ondansetron PF 4 MG/2 ML Vial IVP PRN (08:42)
[2021-12-09] MEDS: Enoxaparin Sodium 40 MG/0.4 ML SYRINGE SC SCH (09:00)
[2021-12-09 09:42] LABS: #Eosinphils 0.2 thou/uL (0.0-0.7); #Lymphocytes 1.2 thou/uL (1.20-3.40); #Monocytes 0.8 thou/uL (0.11-0.59); #Neutrophils 7.1 thou/uL (1.40-6.50); %Basophils 0.4 % (0.0-1.0); %Eosinophils 1.6 % (0.0-10.0); %Lymphocytes 12.8 % (21.0-51.0); %Monocytes 8.5 % (0.0-10.0); %Neutrophils 76.7 % (42.0-75.0); Hemoglobin 9.5 g/dL (12.0-16.0); Mean Corpuscular HGB CONC 33.6 g/dL (32.0-36.0); Mean Corpuscular Hemoglobin 29.7 pg (27.0-31.0); Mean Corpuscular Volume 88.3 fL (78.0-98.0); Mean Platelet Volume 7.7 fL (7.4-10.4); Platelet Count 313 thou/uL (130-400); RBC Distribution Width 15.5 % (11.5-14.5); Red Blood Cell (RBC) Count 3.19 mill/uL (4.20-5.40); White Blood Cell (WBC) Count 9.2 thou/uL (4.8-10.8)
[2021-12-09] MEDS: Atorvastatin Calcium 40 MG TAB PO SCH (21:16)
[2021-12-10] MEDS: Ciprofloxacin 500 MG TAB PO SCH ×2 (05:30→20:29)
[2021-12-10] MEDS ORDERED: Bacitracin 1 PK TOP SCH (09:00)
[2021-12-10] MEDS: Ferrous Sulfate 325 MG TAB PO SCH ×2 (10:06→16:43)
[2021-12-10] MEDS: Clopidogrel Bisulfate 75 MG TAB PO SCH (10:06)
[2021-12-10] MEDS: metroNIDAZOLE 500 MG TAB PO SCH ×3 (10:06→20:29)
[2021-12-10] MEDS: metFORMIN 500 MG TAB PO SCH ×2 (10:06→16:43)
[2021-12-10] MEDS: Metoprolol Tartrate 50 MG TAB PO SCH ×2 (10:07→20:29)
[2021-12-10] MEDS: Lisinopril 10 MG TAB PO SCH (10:07)
[2021-12-10] MEDS: buPROPion 75 MG TAB PO SCH ×2 (10:07→20:29)
[2021-12-10] MEDS: Famotidine 20 MG TAB PO SCH ×2 (10:07→20:29)
[2021-12-10] MEDS: Lantus 1000 UNITS/10 ML VIAL SC SCH ×2 (10:08→21:01)
[2021-12-10] MEDS: Aspirin 81 mg Enteric Coated Tablet PO SCH (10:08)
[2021-12-10] MEDS: Triple Antibiotic Oint 1 GM Packet TOP SCH (10:08)
[2021-12-10] MEDS: Enoxaparin Sodium 40 MG/0.4 ML SYRINGE SC SCH (10:08)
[2021-12-10] MEDS: Atorvastatin Calcium 40 MG TAB PO SCH (20:29)
[2021-12-11] MEDS: Ciprofloxacin 500 MG TAB PO SCH (05:50)
[2021-12-11] MEDS: metroNIDAZOLE 500 MG TAB PO SCH (09:39)
[2021-12-11] MEDS: Aspirin 81 mg Enteric Coated Tablet PO SCH (09:39)
[2021-12-11] MEDS: metFORMIN 500 MG TAB PO SCH (09:39)
[2021-12-11] MEDS: Metoprolol Tartrate 50 MG TAB PO SCH (09:39)
[2021-12-11] MEDS: Enoxaparin Sodium 40 MG/0.4 ML SYRINGE SC SCH (09:39)
[2021-12-11] MEDS: Triple Antibiotic Oint 1 GM Packet TOP SCH (09:39)
[2021-12-11] MEDS: Ferrous Sulfate 325 MG TAB PO SCH (09:39)
[2021-12-11] MEDS: buPROPion 75 MG TAB PO SCH (09:39)
[2021-12-11] MEDS: Clopidogrel Bisulfate 75 MG TAB PO SCH (09:40)
[2021-12-11] MEDS: Lisinopril 10 MG TAB PO SCH (09:40)
[2021-12-11] MEDS: Famotidine 20 MG TAB PO SCH (09:40)
[2021-12-11] MEDS: Lantus 1000 UNITS/10 ML VIAL SC SCH (11:14)
[2021-12-11] MEDS: Acetaminophen 325 MG TAB PO PRN (11:16)
[2021-12-11] MEDS: traMADol HCl 50 MG TAB PO PRN (11:17)
[2021-12-11] MEDS: Ondansetron PF 4 MG/2 ML Vial IVP PRN (11:17)
[2021-12-11 16:29] VITALS: BP 126/60; TEMP 98
== END 2021-12-11 17:16 | disposition home health service (06) | DRG 252 ==
LOC: ERS 12:55 → SURG A 16:11
PROVIDERS: ADMIT Internal Medicine; ATTEND Internal Medicine
PROC: 8E0ZXY6 Isolation (ICD-10-PCS; 2021-12-05)
PROC: 30233N1 Transfusion of Nonautologous Red Blood Cells into Peripheral Vein, Percutaneous Approach (ICD-10-PCS; 2021-12-05)
PROC: 047K3ZZ Dilation of Right Femoral Artery, Percutaneous Approach (ICD-10-PCS; principal; 2021-12-07)
PROC: 0Y6P0Z0 Detachment at Right 1st Toe, Complete, Open Approach (ICD-10-PCS; 2021-12-07)
DX: E11.52 Type 2 diabetes mellitus with diabetic peripheral angiopathy with gangrene (principal); U07.1 COVID-19; I96 Gangrene, not elsewhere classified; E11.65 Type 2 diabetes mellitus with hyperglycemia; E78.5 Hyperlipidemia, unspecified; F17.210 Nicotine dependence, cigarettes, uncomplicated; Z21 Asymptomatic human immunodeficiency virus [HIV] infection status; E11.621 Type 2 diabetes mellitus with foot ulcer; L97.519 Non-pressure chronic ulcer of other part of right foot with unspecified severity; R62.7 Adult failure to thrive; F31.9 Bipolar disorder, unspecified; D50.9 Iron deficiency anemia, unspecified; Z79.82 Long term (current) use of aspirin; Z79.01 Long term (current) use of anticoagulants; Z79.84 Long term (current) use of oral hypoglycemic drugs; Z79.899 Other long term (current) drug therapy; Z68.21 Body mass index [BMI] 21.0-21.9, adult; E11.649 Type 2 diabetes mellitus with hypoglycemia without coma
CPT/HCPCS: 36247; 36415; 36416; 36430; 37224; 75710; 80048; 80053; 81003; 81015; 83605; 85014; 85018; 85025; 85049; 85347; 85652; 86140; 86850; 86900; 86901; 87040; 88305; 88311; C1889; J1642; J1644; J1650; J1815; J2405; J2704; J2720; J3010; J7120; P9016; Q9967; U0002